=== PATIENT | male | born 1995 | race Caucasian/White ===

== ENCOUNTER 2017-08-17 02:59 | Emergency (ER) | payer OTHER ==
[~2017-08-17] VITALS: Ht 160 cm; Wt 80.1 kg
[2017-08-17 03:04] VITALS: Ht 160 cm; Wt 80.1 kg
[2017-08-17] MEDS ORDERED: LIDOCAINE/EPINEPHRINE 1% 20 ML VIAL ONE (03:13)
[2017-08-17 03:44] VITALS: BP 136/76; PULSE 89; TEMP 36.8; O2SAT 98
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
== END 2017-08-17 03:50 | disposition home or self-care (01) ==
LOC: C.EDB 03:03 → C.EDA 03:50
DX: S09.90XA Unspecified injury of head, initial encounter (principal); W22.8XXA Striking against or struck by other objects, initial encounter